=== PATIENT | male | born 1995 | race Caucasian/White ===

== ENCOUNTER 2022-03-03 12:14 | Emergency (ER) | payer BC, SELFPAY ==
[2022-03-03 12:30] VITALS: BP 122/56; PULSE 78; RESP 18; TEMP 36.7; O2SAT 100
[2022-03-03 13:17] VITALS: BP 122/56; PULSE 78; RESP 18; TEMP 36.7; O2SAT 100
--- NOTE | 2022-03-03 15:10 | ED.SKABFB ---
HPI - Skin/Abscess/Foreign Bdy General Chief complaint: Skin/Abscess/Foreign Body Stated complaint: Skin Problem/Toe Time Seen by Provider: 03/03/22 15:10 Source: patient, RN notes reviewed and old records reviewed Mode of arrival: ambulatory Limitations: no limitations History of Present Illness HPI narrative: 26-year-old male who presents to [facility] with complaints of 1cm firm left great volar toe lesion circular in nature and painful with new 0.1cm new lesion proximal great toe in the last week. Patient reports that he works at [employer] and wears steel toed boot and is on his feet all day. Patient reports that initial lesion has been there for about 1.5 months and he has tried corn removal preparation without success. Lesions are firm hard and tender to palpation with no surrounding redness or acute warmth of skin area. MD complaint: lesion Onset (ago): month(s) (largest lesion 1.5 months smaller lesion 1 week) Severity scale (1-10): 3 Exacerbating factors: other (walking weight bearing on left great toe) Treatments prior to arrival: other (corn medication) Related Data Allergies Allergy/AdvReac Type Severity Reaction Status Date / Time azithromycin Allergy Hives Verified 03/03/22 13:27 Review of Systems Review of Systems: CONSTITUTIONAL: Denies fever, chills, or sweats. CARDIOVASCULAR: Denies chest pain, palpitations, or edema. RESPIRATORY: Denies cough or dyspnea. SKIN: Reports left volar toe great toe lesions MUSCULOSKELETAL: Denies joint pain or myalgia. NEUROLOGIC: Denies headache, numbness, or weakness. All systems reviewed & are unremarkable except as noted in HPI and below [facility] Past Medical History Medical History (Updated 03/08/22 @ 21:34 by Andra Sofia NP) COVID-2019 History of varicocele Surgical History Surgical History (Updated 03/08/22 @ 21:34 by Andra Sofia NP) History of tonsillectomy Social History Social History (Updated 03/08/22 @ 21:36 by Andra Sofia NP) Smoking status: Never smoker Alcohol intake: current Alcohol use details: social Substance use type: does not use Living arrangements: with family Gender identity (if verbalized by the patient): Male Comments At time of signature, agree with nursing past medical, surgical, social and family history. There is no relevant family history pertinent to the presenting complaint Exam Narrative: GENERAL: Well-appearing, well-nourished, and in no acute distress. HEAD: Normocephalic, atraumatic. EYES: PERRLA, conjunctivae clear, and EOMI. ENT: Mucous membranes moist. Oropharynx without edema, erythema or lesions. NECK: Supple. No lymphadenopathy CHEST: Clear to auscultation. No respiratory distress. HEART: Regular rate and rhythm. SKIN: Warm, dry.? 1cm firm tender lesion volar aspect left great toe and second 0.1cm new lesion proximal from initial larger lesion, tender to palpation no redness or warmth to area. NEURO:? Alert and oriented x3. PSYCH: Normal mood and affect Course Course Emergency Course: Patient is aware of diagnosis, understands and agrees to treatment plan.? Anticipatory guidance given.? Patient agrees to follow-up as directed and is aware of reasons to seek care at the emergency department. Portions of this record may have been created with voice recognition software Level of Care: Express Care Visit Vital Signs Vital signs: Vital Signs Temperature 36.7 C 03/03/22 12:30 Pulse Rate 78 03/03/22 12:30 Respiratory Rate 18 03/03/22 12:30 Blood Pressure 122/56 L 03/03/22 12:30 Pulse Oximetry 100 03/03/22 12:30 Oxygen Delivery Room Air 03/03/22 12:30 Temperature 36.7 C 03/03/22 13:17 Pulse Rate 78 03/03/22 13:17 Respiratory Rate 18 03/03/22 13:17 Blood Pressure 122/56 L 03/03/22 13:17 Pulse Oximetry 100 03/03/22 13:17 Oxygen Delivery Room Air 03/03/22 13:17 Reviewed MDM - Skin/Abscess/Foreign Bdy MDM Narrati
== END 2022-03-03 15:35 | disposition home or self-care (01) ==
PROVIDERS: Emergency Provider Registered Nurse
DX: B07.0 Plantar wart (principal); Z86.16 Personal history of COVID-19
CPT/HCPCS: 99213; G0463

== ENCOUNTER 2022-04-17 11:34 | Emergency (ER) | payer SELFPAY ==
[2022-04-17 11:39] VITALS: BP 118/70; PULSE 78; RESP 18; TEMP 36.4; O2SAT 99
--- NOTE | 2022-04-17 11:52 | ED.GENADULT ---
HPI - General Adult General Chief complaint: Nausea/Vomiting/Diarrhea Stated complaint: diarrhea Source: patient Mode of arrival: ambulatory Limitations: no limitations History of Present Illness HPI narrative: Patient presents for evaluation of loose stool for the last few days. He denies any blood or mucus in the stool. No abdominal pain. No fever or chills. No recent sick contacts. No new foods. No personal or family history of inflammatory bowel disease. He took amoxicillin about a month and a half ago but has not been on any other antibiotics as of late. He tried taking one dose of Imodium but is not sure whether it may be considerable difference in his symptoms persist. Related Data Home Medications Medication Instructions Recorded Confirmed No Home Medications 04/17/22 04/17/22 Allergies Allergy/AdvReac Type Severity Reaction Status Date / Time azithromycin Allergy Mild Hives Verified 04/17/22 11:46 Review of Systems Review of Systems: CONSTITUTIONAL: Denies fever, chills, or sweats. EYES: Denies visual changes, redness, or discharge. ENT: Denies rhinorrhea, congestion, sore throat, or otalgia. CARDIOVASCULAR: Denies chest pain, palpitations, or edema. RESPIRATORY: Denies cough or dyspnea. GASTROINTESTINAL: Reports loose stool. Denies blood or mucus in the stool. Denies abdominal pain, nausea, vomiting GENITOURINARY: Denies dysuria or hematuria. SKIN: Denies rash or itching. MUSCULOSKELETAL: Denies back pain, joint pain, or myalgia. NEUROLOGIC: Denies headache, numbness, dizziness, or weakness. PSYCHIATRIC: Denies anxiety or depression. [facility] Past Medical History Medical History COVID-19 2019 History of varicocele Surgical History Surgical History History of tonsillectomy Family History Family History Mother Family history non-contributory Social History Social History Smoking status: Never smoker Alcohol intake: current Alcohol use details: social Substance use type: does not use Gender identity (if verbalized by the patient): Male Sexual Orientation (if Verbalized by the Patient): Straight or Heterosexual Spiritual care concerns: No Exam Narrative: GENERAL: Well-appearing, well-nourished, and in no acute distress. HEAD: Normocephalic, atraumatic. EYES: PERRLA and EOMI. ENT: Nares clear, no rhinorrhea or epistaxis. Mucous membranes moist. Oropharynx without tonsillar hypertrophy exudate or other lesions. Bilateral TMs pearly nuñez nonbulging NECK: Supple. No adenopathy or masses. No carotid bruits or JVD CHEST: Clear to auscultation. No respiratory distress. No wheezes rales or rhonchi HEART: Regular rate and rhythm. No murmur heard. Normal peripheral pulses. ABDOMEN: Soft, nontender, nondistended, normal active bowel sounds. EXTREMITIES: Normal range of motion. No edema. SKIN: Warm, dry, no rash. NEURO: No focal deficits. Alert and oriented x3. PSYCH: Normal mood and affect. Course Course Emergency Course: This is a 26-year-old male who presented for evaluation of loose stool. He has no abdominal pain, nausea, vomiting, blood or mucus in the stool to suggest colitis. This is not sound to be inflammatory bowel disease. Advised on BRAT diet and increased hydration. May continue take Imodium for loose stool. I did offer him a prescription for Lomotil which he declined. He requested a note for work which was provided. He should follow up outpatient for further evaluation and treatment and go to ER for abdominal pain, fever, or blood/mucus in the stool. Patient in agreement with plan of care. Level of Care: Express Care Visit Vital Signs Vital signs: Vital Signs Temperature 36.4 C L 04/17/22 11:39 Pulse Rate 78 01/0
== END 2022-04-17 11:53 | disposition home or self-care (01) ==
PROVIDERS: Emergency Provider Nurse Practitioner
DX: R19.7 Diarrhea, unspecified (principal); Z86.16 Personal history of COVID-19
CPT/HCPCS: 99211; G0463

== ENCOUNTER 2025-02-03 16:56 | Emergency (ER) | payer OTHER, SELFPAY ==
[2025-02-03] VITALS (9 sets, daily range): BP systolic 97–146; BP diastolic 50–87; PULSE 63–86; RESP 13–20; TEMP 36.5; O2SAT 99–100
--- NOTE | ~2025-02-03 | XR_ITS ---
EXAMINATION: XR chest 2V, 02/03/2025 17:50 CDT HISTORY: CP COMPARISON: No comparisons available. Technique: 2 views obtained. Findings: The lungs are clear, no effusion. No pneumothorax. Heart is normal size. Mediastinal and hilar contours are within normal limits. Bony thorax no acute abnormality. Impression: No acute cardiopulmonary abnormality. Reviewed, dictated and finalized at location P. Impression: No acute cardiopulmonary abnormality.
--- OUTSIDE RECORDS SUMMARY | 2025-02-03 16:59 | XMS_ITS | Clinical Summary ---
Author Organization [facility] Address [address] [place] [id number] Phone [email or web address] Care Team Providers Care Supervisor [employer] Department Name Role Phone Unavailable Primary Care Provider Unavailabl e Allergies Active Allergy Reactions Criticality Noted Date Comments Azithromycin Hives Medium 12/02/2017 Medications loratadine (CLARITIN) 10 MG tabletIndication s:OTC Take 10 mg by mouth 1 (one) time each day. Active Active Problems No known active problems Family History Medical History Relation Name Comments No Known Problems Father Hypertension Maternal Grandfather No Known Problems Mother Relation Name Status Comments Father Maternal Grandfather Mother Social History Tobacco Use Types Packs/Day Years Used Date Smoking Tobacco: Never Smokeless Tobacco: Never Alcohol Use Standard Drinks/Week Comments Yes 1 (1 standard drink = 0.6 oz pur e alcohol) Intimate Partner Violence Answer Date R ecorded Insults You Not on file 07/21/2020 Threatens You Not on file 07/21/2020 Screams at You Not on file 07/21/2020 Physically Hurt Not on file 07/21/2020 Intimate Partner Violence Score Not on file 07/21/2020 Stress Answer Date Recorded Stress in your Life 0 05/21/2020 Dealing with Stress Not on file 05/21/2020 Sex and Gender Information Value Date Recorded Sex Assigned at Not on file Legal Sex Male 10:48 AM [employer] Gender Identity Not on file Sexual Orientation Not on file Last Filed Vital Signs Vital Sign Reading Time Taken Comments Blood Pressure 110/72 12/02/2017 11:51 AM CDT Pulse 75 12/02/2017 11:51 AM CDT Temperature 37 C (98.6 F) 12/02/2017 11:51 AM CDT Respiratory Rate 18 12/02/2017 11:51 AM CDT Oxygen Saturation 98% 12/02/2017 11:51 AM CDT Inhaled Oxygen Concentration - - Weight 75.4 kg (166 lb 3 oz) 12/02/2017 11:51 AM CDT Height 177.8 cm (5' 10) 12/02/2017 11:51 AM CDT Body Mass Index 23.85 12/02/2017 11:51 AM CDT Plan of Treatment Health Maintenance Due Date Last Done Comments Dental Cleaning/Exam 1996 HPV Immunization (1 - Male 3 -dose series) 06/11/2011 Hepatitis B Immunization (1 of 3 - 19+ 3-dose series) 06/11/2015 Tetanus Diphtheria and Pertu ssis Immunization (1 - Tdap) 06/11/2015 Covid-19 Immunization (1 - 2 season) 2024 Influenza Immunization (#1) 2024 HIB Immunization Aged Out No longer e ligible based on patient's age to complete this topic Hepatitis A Immunization Aged Out No longer eligible based on patient's age to complete this topic Pneumococcal Immunization Aged Out No longer eligible based on patient's age to complete this topic Polio Immunization Aged Out No longer eligible based on patient's age to complete this topic Varicella Immunization Aged Out No lo nger eligible based on patient's age to complete this topic Insurance [facility]
--- OUTSIDE RECORDS SUMMARY | 2025-02-03 16:59 | XMS_ITS | Patient Health Record ---
Author Organization [facility] [employer] Address [address] [facility] [address] [place] [id number] Care Team Providers Care Sanitation Director Name Role Phone MarcellClara Primary Care Provider [phone] Reason For Referral No Information Social History Social History [facility] Social Info Question Answer Notes Household/Enviromental Risk Factors: Any Patient/Famil y Concerns : No Do you have any social/cultu ral characteristics? Social Characteristics: Yes Highest level of education: Graduated High School Concerns with daily living situations: None Support from family/friends: Yes Participation in community activities: No Cultural Characteristics: No Communication Barriers Are: None Assessment of Health Literacy Understands how to take medication Yes Understands risks/side effects of medication Yes Drugs/Alcohol: Social Info Question Answer Notes Caffeine Intake: more than 4 cups per day Tea Problems No Known Problems Plan Of Treatment No Information Insurance Providers Payer Name Payer Address Payer Phone Subscriber Number Group Number Insured Name Patient Relationship to Insured Coverage Start Date [facility]age End Date [facility] [address] [place] [address] [id number] Abraham Overton Self - patient is the insured 2019
--- OUTSIDE RECORDS SUMMARY | 2025-02-03 16:59 | XMS_ITS | Clinical Summary ---
Author Organization [facility] Address [address] [place] [address] Care Team Providers Care Spray Crew Name Role Phone Piotr Huerta MD Primary Care Provider [phone] Source Comments [facility],non-[facility] Affiliates and Associated Physician Practices is amultiple site organization consisting of ambulatory clinics and hospital sitesin [place], [place], [place] and [place]. This disclosure is being madepursuant to the Care Everywhere program and may not contain all information available regarding this patient. Last updated 17.[facility] [employer] Allergies Active Allergy Reactions Criticality Noted Date Comments Azithromycin Urticaria Medium 10/28/2019 Medications * Be aware that medications may not be up to date on this document. Alwaysverify current medications with the patient. No known medications Family History Relation Name Status Comments Father Alive Mother Alive Social History Tobacco Use Types Packs/Day Years Used Date Smoking Tobacco: Never Smokeless Tobacco: Never Alcohol Use Standard Drinks/Week Comments Yes 0 (1 standard drink = 0.6 oz pur e alcohol) occasionally Sex and Gender Information Value Date Recorded Sex Assigned at Not on file Legal Sex Male 11:05 AM CDT Gender Identity Not on file Sexual Orientation Not on file Last Filed Vital Signs Vital Sign Reading Time Taken Comments Blood Pressure 139/75 01/07/2020 2:21 PM CDT Pulse 67 01/07/2020 2:21 PM CDT Temperature 36.2 C (97.2 F) 01/07/2020 2:21 PM CDT Respiratory Rate 18 01/07/2020 2:21 PM CDT Oxygen Saturation 99% 01/07/2020 2:21 PM CDT Inhaled Oxygen Concentration - - Weight 76.7 kg (169 lb) 01/07/2020 2:21 PM CDT Height 179.1 cm (5' 10.5) 01/07/2020 2:21 PM CD T Body Mass Index 23.91 01/07/2020 2:21 PM CDT Plan of Treatment Health Maintenance Due Date Last Done Comments HIV SCREENING 06/11/2011 HEPATITIS C SCREENING 06/06/2014 DTAP/TDAP/TD VACCINES (1 - Tdap) 06/11/2015 HEPATITIS B VACCINE (1 of 3 - 19+ 3-dose series) 06/11/2015 HPV VACCINE (1 - 3-dose SCDM series) 06/11/2023 DEPRESSION SCREENING 04/11/2024 COVID-19 VACCINE (1 - 2023-2 5 season) 2024 INFLUENZA VACCINE (#1) 2024 ZOSTER VACCINE (1 of 2) 2046 HIB VACCINE Aged Out No longer eligi ble based on patient's age to complete this topic MENINGOCOCCAL (Group B) VACC INE SHARED DECISION-MAKING Aged Out No longer eligibl e based on patient's age to complete this topic MENINGOCOCCAL GROUPS A/C/Y/W VACCINE Aged Out No longer eligible b ased on patient's age to complete this topic PNEUMOCOCCAL VACCINE Aged Out No long er eligible based on patient's age to complete this topic Insurance [facility] * Guarantor: E-SCREEN,SOIL Account Type Relation to Patient Date of Phone Billing Address Company Employer [employer] [address] [employer] Spray [employer] Relationship Specialty Start Date End Date Piotr Huerta MD [address] [place] [address] PCP - General Family Medicine 09/11/14
--- NOTE | 2025-02-03 17:04 | ECG_ITS ---
Test Date: 2025-02-03 17:10:04 Measurements Intervals [place] Rate: 52 P: 38 NM: 162 QRS: 68 QRSD: 98 T: 15 QT: 385 QTc: 359 Interpretive Statements SINUS BRADYCARDIA BORDERLINE ECG No previous ECG available for comparison Electronically Signed On 02-03-2025 19:21:34 CDT by Santana Wallace D.O.
[2025-02-03 17:15] LABS: Hematocrit 46.4 % (42.0-52.0); Hemoglobin 15.7 g/dL (14.0-18.0); Immature Granulocyte Percent A 0.3 % (0-0.5); Lymphocytes Absolute Auto 2.43 K/mm3 (0.9-3.2); Mean Corpuscular HGB Conc 33.8 g/dl (32-36); Mean Corpuscular Hemoglobin 28.8 pg (26-34); Mean Corpuscular Volume 85.1 fl (80-100); Nucleated Red Blood Cells Absolute Auto 0.000 K/mm3 (0.0-0.012); Nucleated Red Blood Cells Perc 0.0 % (0.0-0.2); Platelet Count Result 275 k/mm3 (150-375); Red Blood Count 5.45 M/mm3 (4.6-6.20); White Blood Count 7.9 K/mm3 (4.5-10.0)
--- NOTE | 2025-02-03 17:17 | ED.CHESTPAIN ---
HPI - Chest Pain General Chief Complaint: Chest Pain Stated Complaint: acid reflux Time Seen by Provider: 02/03/25 17:08 History of Present Illness HPI narrative: 29-year-old male presenting to the emergency department with indigestion and midepigastric pain. Patient states that occurred after eating at [employer]. Patient states that he has had some indigestion sensation and burning epigastric pain into his throat as well as some nausea without vomiting. Previously did have a food bolus 2 years ago that passed spontaneously without any EGD but now occasionally gets sensations of food sticking in his throat. Is able tolerate oral intake and does not feel like he has anything in his throat right now. Took some Pepcid and Tums prior to arrival with some mild improvement. Was otherwise in his normal state of health. No cardiac history. No traumatic injuries. No shortness of breath, neck pain, back pain, fever, chills. Related Data Allergies Allergy/AdvReac Type Severity Reaction Status Date / Time azithromycin Allergy Mild Hives Verified 04/17/22 11:46 Review of Systems Review of Systems: As reviewed [facility] in HPI [facility] Past Medical History Medical History History of varicocele COVID-19 2019 Surgical History Surgical History History of tonsillectomy Family History Family History Mother Family history non-contributory Social History Social History Smoking status: Never smoker Alcohol intake: current Alcohol use details: social Substance use type: does not use Living arrangements: with family Gender identity (if verbalized by the patient): Male Sexual Orientation (if Verbalized by the Patient): Straight or Heterosexual Spiritual care concerns: No Exam Narrative: GENERAL: [Well-appearing, well-nourished, and in no acute distress.] HEAD: [Normocephalic, atraumatic.] EYES: [PERRLA and EOMI.] ENT: Nares clear, no rhinorrhea or epistaxis. Mucous membranes moist. NECK: Supple. CHEST: [Clear to auscultation. No respiratory distress.] HEART: [Regular rate and rhythm]. No murmur heard. [Normal peripheral pulses.] ABDOMEN: [Soft, nondistended], [nontender], [No rigidity or guarding] EXTREMITIES: Normal range of motion. [No edema.] SKIN: Warm, dry, no rash. NEURO: [No focal deficits]. Alert and oriented [x3.] PSYCH: [Normal mood and affect.] Course Vital Signs Vital signs: Vital Signs Temperature 36.5 C 02/03/25 16:58 Pulse Rate 77 02/03/25 16:58 Respiratory Rate 15 02/03/25 16:58 Blood Pressure 146/67 H 02/03/25 16:58 Pulse Oximetry 100 02/03/25 16:58 Oxygen Delivery Room Air 02/03/25 16:58 Temperature 36.5 C 02/03/25 16:58 Pulse Rate 81 02/03/25 19:31 Respiratory Rate 19 02/03/25 19:31 Blood Pressure 123/67 02/03/25 19:30 Pulse Oximetry 99 02/03/25 19:31 Oxygen Delivery Room Air 02/03/25 17:09 MDM - Chest Pain MDM Narrative Medical decision making narrative: 29-year-old male presenting to the emergency department with indigestion and midepigastric pain. Patient states that occurred after eating at [employer]. Patient states that he has had some indigestion sensation and burning epigastric pain into his throat as well as some nausea without vomiting. Previously did have a food bolus 2 years ago that passed spontaneously without any EGD but now occasionally gets sensations of food sticking in his throat. Is able tolerate oral intake and does not feel like he has anything in his throat right now. Took some Pepcid and Tums prior to arrival with some mild improvement. Was otherwise in his normal state of health. No cardiac history. No traumatic injuries. No shortness of breath, neck pain, back pain, fever, chills. Patient has reassuring vital signs. No tachycardia, fever, hypoxemia. Mildly hypertensive but not severe. Unremarkable physical exam with no respiratory distress, strong symmetric pulses, no diaphoresis. Suspect indigestion, GERD, and gastritis versus less likely eosinophilic esophagitis or ACS given his lack of risk factors. Single troponin ordered, chest x-ray EKG, basic labs and treatment with Pepcid Maalox as well as Zofran given. Placed on laboratory monitor and re-evaluated. No leukocytosis or anemia. Normal platelet count. Normal electrolytes. Normal creatinine. Normal glucose. Normal GFR. Normal LFTs. Negative troponin. Mildly elevated lipase above the upper limit of normal, not high enough for concern pancreatitis. Patient has no abdominal pain or tenderness on examination. Chest x-ray without any acute cardiopulmonary problems. EKG without any ischemia. Patient felt better after 2nd round of medication. Will be discharged home with combination of Maalox and Pepcid. Given return precautions. Medical Records Data Attestation: I reviewed the patient's medical records. Lab Data Attestation: I reviewed the patient's lab results. 02/03/25 17:07 02/03/25 17:07 Labs: Lab Results 02/03/25 Range/Units 17:07 WBC 7.9 (4.5-10.0) K/mm3 RBC 5.45 (4.6-6.20) M/mm3 Hgb 15.7 (14.0-18.0) g/dL Hct 46.4 (42.0-52.0) % MCV 85.1 (80-100) fl MCH 28.8 (26-34) pg MCHC 33.8 (32-36) g/dl RDW 13.5 (11.5-14.5) % Plt Count 275 (150-375) k/mm3 MPV 9.3 (7.4-10.4) fl Immature Gran % (Auto) 0.3 (0-0.5) % Neut % (Auto) 55.8 (45.5-73.1) % Lymph % (Auto) 30.7 (18.3-44.2) % Wirt % (Auto) 9.8 H (2.6-8.5) % Eos % (Auto) 3.0 (0-4.4) % Baso % (Auto) 0.4 (0.2-1.2) % Lymph # (Auto) 2.43 (0.9-3.2) K/mm3 Wirt # (Auto) 0.8 H (0.1-0.6) K/mm3 Eos # (Auto) 0.2 (0-0.3) K/mm3 Baso # (Auto) 0.0 (0.0-0.1) K/mm3 Abs Immat Gran (auto) 0.02 (0.00-0.031) K/mm3 Absolute Neuts (auto) 4.4 (1.3-6.7) K/mm3 Absolute Nucleated RBC 0.000 (0.0-0.012) K/mm3 Nucleated RBC % 0.0 (0.0-0.2) % PT 13.3 (11.1-14.7) Seconds INR 1.0 APTT 28.2 (22.3-36.8) Seconds Sodium 138 (137-145) mmol/L Potassium 3.7 (3.4-5.0) mmol/L Chloride 100 (98-107) mmol/L Carbon Dioxide 29 (22-30) mmol/L Anion Gap 9 (4-12) mmol/L BUN 11 (9-20) mg/dL Creatinine 0.87 (0.7-1.3) mg/dL Estim Creat Clear Calc 133 ml/min Estimated GFR > 60 (59 - ) Glucose 96 (65-110) mg/dL Calcium 9.1 (8.4-10.2) mg/dL Total Bilirubin 0.4 (0.2-1.3) mg/dL AST 35 (17-59) U/L ALT 46 (6-50) U/L Alkaline Phosphatase 64 (38-126) U/L Troponin I < 0.012 (0.000-0.034) ng/mL C-Reactive Protein 0.8 (<1.0) mg/dL Total Protein 8.0 (6.3-8.2) g/dL Albumin 4.6 (3.5-5.1) g/dL Lipase 327 H (23-300) U/L Imaging Data Attestation: I personally reviewed and interpreted this imaging study as follows: My impression: Impressions Chest X-Ray 02/03/25 17:56 Impression: No acute cardiopulmonary abnormality. Discharge Plan Discharge Clinical Impression: Indigestion, Chest pain Patient Disposition: Home Condition: Stable Instructions: Antibiotic Form, Chest Pain (ED), Indigestion (ED) Additional Instructions: Cardiac labs are unremarkable. X-ray an EKG normal. Mildly elevated lipase which can be a sign of some indigestion but not high enough to be consistent with pancreatitis. Take the prescribed medications as needed for symptoms. Return with any emergent concerns such as worsening pain, difficulty breathing, crushing chest discomfort, losing consciousness, inability to tolerate oral intake, profound nausea vomiting or any other issues. Patient Language: Ecuadorean Prescriptions: New alum-mag hydroxide-simeth [Maalox Advanced] 200-200-20 mg/5 mL suspension 15 ml PO QID PRN (Reason: indigestion) Qty: 3000 0RF Rx Instructions: administer between meals and at bedtime famotidine [Pepcid] 20 mg tablet 20 mg PO BID Qty: 20 0RF ondansetron 4 mg tablet,disintegrating 4 mg PO Q8H PRN (Reason: nausea and vomiting) Qty: 10 0RF Follow-up/Referrals: Georgina Estrella DO [Primary Care Provider, [facility]] Time of Disposition: 19:24
[2025-02-03] MEDS: MAG HYDROX/AL HYDROX/SIMETH 30 ML UDC PO (17:27)
[2025-02-03 17:28] LABS: INR 1.0; Partial Thromboplastin Time 28.2 Seconds (22.3-36.8); Prothrombin Time 13.3 Seconds (11.1-14.7)
[2025-02-03] MEDS: ONDANSETRON INJ 4 MG/2 ML VIAL IV PUSH (17:28)
[2025-02-03] MEDS: FAMOTIDINE 20 MG/2 ML VIAL IV PUSH (17:28)
[2025-02-03 17:35] LABS: Alanine Aminotransferase 46 U/L (6-50); Albumin Level 4.6 g/dL (3.5-5.1); Alkaline Phosphatase 64 U/L (38-126); Anion Gap 9 mmol/L (4-12); Aspartate Amino Transferase 35 U/L (17-59); Bilirubin,Total 0.4 mg/dL (0.2-1.3); Blood Urea Nitrogen 11 mg/dL (9-20); CRP 0.8 mg/dL (<1.0); Calcium 9.1 mg/dL (8.4-10.2); Carbon Dioxide 29 mmol/L (22-30); Chloride 100 mmol/L (98-107); Estimated CRCL calculation 133 ml/min; Estimated Glomerular Filt Rate > 60; Glucose 96 mg/dL (65-110); Lipase 327 U/L (23-300); Potassium 3.7 mmol/L (3.4-5.0); Sodium 138 mmol/L (137-145); Total Protein 8.0 g/dL (6.3-8.2)
[2025-02-03 17:43] LABS: Troponin I < 0.012 ng/mL (0.000-0.034)
--- NOTE | 2025-02-03 18:20 | PC.NURSE ---
patient stated that after the medications he feels somewhat better; now the pain is more intermittent.
[2025-02-03] MEDS: KETOROLAC 15 MG/ML VIAL (*BKC) IV PUSH (19:17)
[2025-02-03] MEDS: SUCRALFATE SUSP 100 MG/ML 10 ML UDC 1000 MG PO (19:18)
== END 2025-02-03 19:53 | disposition home or self-care (01) ==
PROVIDERS: Emergency Provider Student in an Organized Health Care Education/Training Program; PCP Family Medicine
DX: R07.9 Chest pain, unspecified (principal); K30 Functional dyspepsia; R00.1 Bradycardia, unspecified
CPT/HCPCS: 36415; 71046; 80053; 83690; 84484; 85025; 85610; 85730; 86140; 93005; 96374; 96375; 99284; A9270; J1885; J2405